=== PATIENT | male | born 1950 | race Caucasian/White ===

== ENCOUNTER 2021-08-05 00:41 | Day surgery (SDC) | payer MEDICARE, SELFPAY ==
[2021-07-20 14:32] VITALS: BMI 26.3
--- NOTE | 2021-08-04 15:28 | P.HP_ITS ---
History of Present Illness History of Present Illness Consent: Risks, benefits, and alternatives have been discussed and questions answered. Patient agrees to proceed with procedure. Chief complaint: positive cologuard Narrative: Milton Doizer is a 71 year old male referred for colon cancer screening. He recently performed Cologuard test that was positive . He has had polyps removed in the past in [place]. His last colonoscopy was 6 years ago Review of Systems Review of Systems: All systems reviewed & are unremarkable except as noted in HPI and below PMFSH Past Medical History Medical History Anxiety COPD (chronic obstructive pulmonary disease) Hyperlipidemia Hypertension Social History Social History Smoking packs per day: 1 Smoking cigarettes per day: 20.0 Years smoked: 40 Smoking pack-years: 40.00 Smoking status: Former smoker Tobacco type: cigarettes Smokeless tobacco user: chewing tobacco Additional smoking assessment comments: patient quit smoking cigarettes 2010 but currently chews tobacco (x 50 yrs) Alcohol intake: former Alcohol use details: sober since 2018 Substance use: never Substance use type: does not use Living arrangements: with family Spiritual care concerns: No Meds Home Medications and Allergies Home Medications Medication Instructions Recorded Confirmed Type amlodipine 10 mg PO DAILY 07/20/21 07/20/21 History aspirin [Baby Aspirin] 81 mg PO DAILY 07/20/21 07/20/21 History atorvastatin 10 mg PO HS 07/20/21 07/20/21 History duloxetine 60 mg PO DAILY 07/20/21 07/20/21 History folic acid 1 mg PO BID 07/20/21 07/20/21 History lisinopril 20 mg PO DAILY 07/20/21 07/20/21 History meloxicam 7.5 mg PO DAILY 07/20/21 07/20/21 History multivitamin [Daily Multivitamin] 1 tablet PO DAILY 07/20/21 07/20/21 History pantoprazole 40 mg PO QAM 07/20/21 07/20/21 History trazodone 100 mg PO HS 07/20/21 07/20/21 History Allergies Allergy/AdvReac Type Severity Reaction Status Date / Time No Known Allergies Allergy Verified 08/05/21 09:39 Exam Resp: Auscultation: clear to auscultation bilaterally Cardio: Rate: regular rate Rhythm: regular rhythm GI: GI Palp: Yes Soft to palpation and No Tenderness to palpation present (GI) Assessment and Plan Assessment and plan (1) Colon cancer screening: Code(s): Z12.11 - Encounter for screening for malignant neoplasm of colon Status: Acute Assessment and Plan: Colonoscopy with possible biopsy or polypectomy or cautery or injection of substances.
--- NOTE | 2021-08-05 08:09 | P.PNAN_ITS ---
Anes - Initial Pre Proc Eval Procedure: Operation Date: 08/05/21 10:30 Proposed Procedures p Colonoscopy - Nikunj Terrell MD Date/Time: 08/05/21 08:09 Surgeon: Nikunj Terrell MD Pre Op Diagnosis: positive cologuard Patient Data Age: 71 Gender: M Height: 1.78 m Weight: 83.2 kg Allergies Allergy/AdvReac Type Severity Reaction Status Date / Time No Known Allergies Allergy Verified 08/05/21 09:39 Home Medications Medication Instructions Recorded Confirmed Type amlodipine 10 mg PO DAILY 07/20/21 07/20/21 History aspirin [Baby Aspirin] 81 mg PO DAILY 07/20/21 07/20/21 History atorvastatin 10 mg PO HS 07/20/21 07/20/21 History duloxetine 60 mg PO DAILY 07/20/21 07/20/21 History folic acid 1 mg PO BID 07/20/21 07/20/21 History lisinopril 20 mg PO DAILY 07/20/21 07/20/21 History meloxicam 7.5 mg PO DAILY 07/20/21 07/20/21 History multivitamin [Daily Multivitamin] 1 tablet PO DAILY 07/20/21 07/20/21 History pantoprazole 40 mg PO QAM 07/20/21 07/20/21 History trazodone 100 mg PO HS 07/20/21 07/20/21 History Patient hx anesthesia problems: none Family hx anesthesia problems: none Results Review: All pre-operative results and documents have been reviewed as part of the pre-operative evaluation. COUNT INCLUDES THE [facility] Past Medical History Medical History (Updated 08/05/21 @ 08:09 by Darrin Hsu DO) Anxiety COPD (chronic obstructive pulmonary disease) Hyperlipidemia Hypertension Social History Social History Smoking packs per day: 1 Smoking cigarettes per day: 20.0 Years smoked: 40 Smoking pack-years: 40.00 Smoking status: Former smoker Tobacco type: cigarettes Smokeless tobacco user: chewing tobacco Additional smoking assessment comments: patient quit smoking cigarettes 2010 but currently chews tobacco (x 50 yrs) Alcohol intake: former Alcohol use details: sober since 2018 Substance use: never Substance use type: does not use Living arrangements: with family Spiritual care concerns: No Anes - Eval Final PreProcedure Day of Procedure 08/05/21 08:09 Patient weight: overweight Heart: regular rate and rhythm Lungs: clear to auscultation and normal air movement Airway: Mallampati scale class II Neurological: alert and oriented Last oral intake: >/= 8 hours ASA classification: III Emergent: no Anesthetic plan: proceed Anesthesia type and monitoring: general GIVS and standard monitoring Results Review: All pre-operative results and documents have been reviewed as part of the pre-operative evaluation. Informed Consent: The patient's anesthetic plan and its attendant risks and b enefits were discussed with the patient/family/POA. Questions were solicited and answers provided to the satisfaction of the patient/family/POA.
[2021-08-05 09:40] VITALS: BP 129/72; PULSE 79; RESP 20; TEMP 36.6; O2SAT 94; BMI 25.2
[2021-08-05] MEDS: LACTATED RINGERS 1,000 ML 150 ML IV CONT (09:46)
--- NOTE | 2021-08-05 11:12 | SUR.OPER ---
Dr. Terrell aware that cecal polyp not retrieved
[2021-08-05 11:13] VITALS: BP 106/67; PULSE 86; RESP 22; O2SAT 97
[2021-08-05 11:23] VITALS: BP 125/76; PULSE 83; RESP 25; O2SAT 94
[2021-08-05 11:33] VITALS: BP 142/86; PULSE 74; RESP 17; O2SAT 96
== END 2021-08-05 11:44 | disposition home or self-care (01) ==
PROVIDERS: PCP Internal Medicine; Visit Provider Internal Medicine Gastroenterology
PROC: 0DJD8ZZ Inspection of Lower Intestinal Tract, Via Natural or Artificial Opening Endoscopic (ICD-10-PCS; CPT 45378; principal; 2021-08-05 10:30)
DX: Z12.11 Encounter for screening for malignant neoplasm of colon (principal); K63.5 Polyp of colon; K57.30 Diverticulosis of large intestine without perforation or abscess without bleeding; R19.5 Other fecal abnormalities; I10 Essential (primary) hypertension; E78.5 Hyperlipidemia, unspecified; J44.9 Chronic obstructive pulmonary disease, unspecified; F41.9 Anxiety disorder, unspecified; Z79.82 Long term (current) use of aspirin; F17.220 Nicotine dependence, chewing tobacco, uncomplicated
CPT/HCPCS: 45385; J2704; J7120

== ENCOUNTER 2024-10-29 09:05 | Outpatient (RCR) | payer MEDICARE, SELFPAY | END 2024-12-10 15:31 | disposition home or self-care (01) | LOC: ANHDMC 09:05 | PROVIDERS: PCP Internal Medicine; Visit Provider Internal Medicine | DX: E11.65 Type 2 diabetes mellitus with hyperglycemia (principal); Z71.3 Dietary counseling and surveillance; Z71.89 Other specified counseling | CPT/HCPCS: G0108 ==

== ENCOUNTER 2025-08-12 12:56 | Outpatient (CLI) | payer MEDICARE, SELFPAY ==
--- NOTE | ~2025-08-12 | CT_ITS ---
EXAMINATION: CT abdomen pelvis wo con DATE: 08/12/2025 13:15 INDICATION: 75-year-old with history of pancreatic abnormality. Details of this diagnosis are not available. TECHNIQUE: Computed tomography (CT) of the abdomen and pelvis was performed without intravenous contrast. Automated exposure control and iterative reconstruction technique were employed. The dose-length product was 565.76 mGy-cm. COMPARISON: None previous available FINDINGS: Severe honeycombing and interstitial fibrosis of the lung bases are noted. Normal size liver and spleen. No definite focal lesions. The gallbladder shows no acute findings. Extrahepatic bile ducts are normal in size. Moderate atrophic changes of the pancreas. No definite space-occupying mass of the pancreas is seen. The pancreatic duct is nondilated. No inflammatory changes surrounding the pancreas. The adrenals and the kidneys are unremarkable. No retroperitoneal adenopathy. Mild ectasia of abdominal aorta measuring 2.5 cm in AP diameter at L3-4 level. No inflammatory changes in the pelvis. No focal bone changes of lumbar spine and pelvic bones. IMPRESSION: 1. Limited evaluation due to lack of oral and IV contrast especially for evaluation of neoplasm, solid viscera. Evaluation for the limited due to lack of further information regarding suspected pancreatic abnormality in this patient. 2. Moderate atrophic changes of the pancreas. No other focal or diffuse changes of the pancreas are seen. If clinical suspicion of pancreatic abnormality is strong, additional evaluation by CT with contrast or MRI can be considered. 3. Mild ectasia of abdominal aorta measuring 2.5 cm in AP diameter at L3-4 level. No evidence of abdominal pelvic lymphadenopathy or ascites. Reviewed, dictated and finalized at location T. DATABASE PROGRAMMER IMPRESSION: 1. Limited evaluation due to lack of oral and IV contrast especially for evalua tion of neoplasm, solid viscera. Evaluation for the limited due to lack of furt her information regarding suspected pancreatic abnormality in this patient. 2. Moderate atrophic changes of the pancreas. No other focal or diffuse changes of the pancreas are seen. If clinical suspicion of pancreatic abnormality is s theresa, additional evaluation by CT with contrast or MRI can be considered. 3. Mild ectasia of abdominal aorta measuring 2.5 cm in AP diameter at L3-4 leve l. No evidence of abdominal pelvic lymphadenopathy or ascites.
--- NOTE | ~2025-08-12 | CT_ITS ---
EXAMINATION:CT lung screening DATE: 08/12/2025 13:16 INDICATION: Screening TECHNIQUE: Computed tomography (CT) of the chest was performed without intravenous contrast. The dose-length product (DLP) was 104.27 mGy-cm. COMPARISON: None. FINDINGS: Moderately severe diffuse fibrosing appearing changes with peripheral/subpleural air cysts formation, with some areas having honeycomb appearance. More advanced air cysts formation in the posterior right lower lobe with mild architectural distortion. No bronchiectasis seen. No gross parenchymal band formation. Diffuse centrilobular emphysematous changes especially of the upper lobes also noted. Scattered subpleural nodular changes likely associated fibrotic change. No consolidation effusion or pneumothorax. Heart size normal with extensive coronary artery calcification and/or stenting. Great vessels normal size. No bulky lymphadenopathy. Central large airways are open. Diffuse degenerative changes throughout the bones. Upper abdomen unremarkable. IMPRESSION: 1. Subpleural nodular changes all have benign appearance; absent previous imaging, follow-up chest CT in 6 months recommended. Lung RADS 3. 2. Advanced fibrosing appearing changes as above can be seen with UIP or fibrosing form of NSIP. 3. Centrilobular emphysematous changes also present. Reviewed, dictated and finalized at location A. THESIOLOGIST AND CRITICAL CARE IMPRESSION: 1. Subpleural nodular changes all have benign appearance; absent previous imagi ng, follow-up chest CT in 6 months recommended. Lung RADS 3. 2. Advanced fibrosing appearing changes as above can be seen with UIP or fibros ing form of NSIP. 3. Centrilobular emphysematous changes also present.
== END 2025-08-12 12:57 | disposition home or self-care (01) ==
PROVIDERS: PCP Internal Medicine; Visit Provider Internal Medicine
DX: Z12.2 Encounter for screening for malignant neoplasm of respiratory organs (principal); Z87.891 Personal history of nicotine dependence; Q45.3 Other congenital malformations of pancreas and pancreatic duct
CPT/HCPCS: 71271; 74176